=== PATIENT | male | born 1940 | race Caucasian/White ===

== ENCOUNTER 2023-02-20 11:59 | Emergency (ER) | payer OTHER ==
--- OUTSIDE RECORDS SUMMARY | 2023-02-20 12:02 | XMS REPORT | Continuity of Care Document ---
:1940 Author Organization [facility] Address [address] [place] [address] [place] [id number] Care Team Providers Name Role Phone Gema GUILLEN, Moiz Attending Clinician Payers Payer Name Policy Type Policy Number Effective Date Expiration Date S ource Problems This patient has no known problems. Allergies, Adverse Reactions, Alerts This patient has no known allergies or adverse reactions. Social History Social Habit Start Date Stop Date Quantity Comments Source Sex Assigned At [facility] llege of Medicine Exposure to Not sure [facility] SARS-CoV-2 of Medicine (event) Alcohol intake 2020-02-17 2020-02-17 Current [facility] Col lege 00:00:00 00:00:00 non-drinker of of Medicin e alcohol (finding) Smoking Status Start Date Stop Date Source Never smoker [facility] o f Medicine Medications Ordered Filled Start Stop Current Ordering Indication Dosage Frequency Signature Comments Components Source Medication Medication Date Date Medication? Clinician (SIG) Name Name clindamycin Yes [id number] Apply to [facility] (CLEOCIN T) 02-16 affected [facility] 1 % lotion 00:00: area on of 00 left cheek Medicin twice a e day for 1 week fluorouraci 2019-0 Yes Apply [facility] l (EFUDEX) 6 topically [facility] 5 % cream 00:00: to of 00 affected Medicin area on e scalp and ears twice a day for up to 4 weeks fluorouraci 2018-09 2020- No Apply [facility] l (EFUDEX) 2-12 19- topically Col lege 5 % cream 00:00: 00:00 to scalp of 00 :00 twice a Medicin day for 4 e weeks Immunizations Ordered Immunization Filled Immunization Date Status Commedmundo ts Source Name Name Influenza Hd 2019-05-09 Completed [facility] Colle ge 00:00:00 of Medicine Vital Signs Vital Name Observation Time Observation Value Comments Source Systolic blood 2020-02-17 17:59:00 147 mm[Hg] [facility] pressure [facility] Diastolic blood 2020-02-17 17:59:00 72 mm[Hg] [facility] pressure [facility] Heart rate 2020-02-17 17:59:00 79 /min [facility] ollege [facility] Body height 2020-02-17 17:59:00 180.3 cm [facility] 2020-02-17 17:59:00 84.369 kg [facility] BMI 2020-02-17 17:59:00 25.94 kg/m2 [facility] Procedures This patient has no known procedures. Plan of Care Planned Activity Planned Date Details Comments Source Future Scheduled MA DESTRUC Ordered: [facility] ege of Test PREMALIGNANT, FIRST 02/17/2020 Medicine LESION(55801) [code = 39452] Future Scheduled TETANUS SHOT [facility] ege of Test (ADULT) [code = Medicine TETANUS SHOT (ADULT)] Future Scheduled BMI FOLLOW UP PLAN [facility] Test [code = BMI FOLLOW Medicine UP PLAN] Future Scheduled MEDICARE AWV [facility] e[facility] of Test (Initial) [code = Medicine MEDICARE AWV (Initial)] Future Scheduled FALL SCREEN [code = [facility] Test FALL SCREEN] Medicine Future Scheduled PNEUMOVAX >=65 [facility] Co llege of Test (PPSV23) [code = Medicine PNEUMOVAX >=65 (PPSV23)] Future Scheduled PREVNAR >= 65 [facility] Col lege of Test (PCV13) [code = Medicine PREVNAR >= 65 (PCV13)] Future Scheduled FLU VACCINE > 6 [facility] ollege of Test MONTHS [code = FLU Medicine VACCINE > 6 MONTHS] Encounters Start End Encounter Admission Attending Care Care Encounter Source Date/Time Date/Time Type Type Clinicians Facility Department ID 2020-02-17 2020-02-17 Office RADHA Ribeiro [id number] [facility] 12:53:26 13:08:26 Visit Moiz AMBULATOR [id number] College [employer] [id number] of [id number] Medi rebecca 300 e Results This patient has no known results.
--- NOTE | 2023-02-20 12:54 | RAD REPORT ---
EXAM DESCRIPTION: US - Extremity Venous Uni Ltd - 02/20/2023 12:48 pm CLINICAL HISTORY: pain, swelling Leg swelling and edema. COMPARISON: No comparisons FINDINGS: Left lower extremity venous system was interrogated with Doppler technique. Normal flow, c ompressibility and augmentation was noted. There is no DVT present. IMPRESSION: No evidence of left lower extremity deep venous thrombosis.
[2023-02-20 14:03] LABS: Hematocrit 39.5 % (39.6-49.0); Lymphocytes % 24.4 % (15.3-44.8); MCV 93.7 fL (80-100); MPV 7.6 fL (7.6-11.3); RBC Red Blood Cell Count 4.21 M/uL (4.33-5.43)
[2023-02-20 14:17] LABS: Albumin 3.7 g/dL (3.4-5.0); Bilirubin Total 0.7 mg/dL (0.2-1.0); Potassium 4.5 mEq/L (3.5-5.1); Protein, Total 7.3 g/dL (6.4-8.2)
--- NOTE | 2023-02-20 14:27 | EDPHYS ---
Physician Documentation [facility] Name: Michael Keating Age: 82 yrs Sex: Male : 1940 Arrival Date: 02/20/2023 Time: 11:59 Bed IW1 Private MD: ED Physician Lam Westbrook HPI: 02/20 13:07 This 82 yrs old Male presents to ER via Ambulatory with complaints of Leg bs3 Swelling. 13:07 82-year-old male presents with lower leg swelling he notes that he was working on a bs3 ladder this weekend and then developed swelling he was not more exertion than he normally does he notes pain in his calf he denies any fevers or chills chest pain shortness of breath or changes in his urine this is never happened before he regularly exercises like this. Historical: - Allergies: 12:15 No Known Allergies; ll1 - PMHx: 12:15 None; ll1 - PSHx: 12:15 Appendectomy; ll1 - Immunization history:: Adult Immunizations up to date, Client reports receiving the 1st dose of the Covid vaccine. - Social history:: Smoking status: Patient denies any tobacco usage or history of. ROS: 13:07 Constitutional: Negative for fever, chills bs3 13:07 All other systems are negative. Exam: 13:07 Constitutional: This is a well developed, well nourished patient who is awake, alert, bs3 and in no acute distress. Head/Face: Normocephalic, atraumatic. Eyes: Pupils equal round and reactive to light, extra-ocular motions intact. Lids and lashes normal. ENT: mmm, no posterior phyarngeal erythema Neck: Trachea midline, no thyromegaly, no neck stiffness Chest/axilla: Normal chest wall appearance and motion. Nontender with no deformity. No lesions are appreciated. Cardiovascular: Regular rate and rhythm with a normal S1 and S2. symmetric pulses in upper extremities Respiratory: Lungs have equal breath sounds bilaterally, clear to auscultation, no respiratory distress Skin: Warm, dry with normal turgor. Normal color with no rashes, no lesions, and no evidence of cellulitis. MS/ Extremity: Lower extremity in the left is swollen he has 1+ pitting edema on the left lower extremity it is not red or warm it is unchanged in color Neuro: Awake and alert, GCS 15, oriented to person, place, time, and situation. Cranial nerves II-XII grossly intact. Motor strength 5/5 in all extremities. Sensory grossly intact. Vital Signs: 12:15 BP 176 / 82; Pulse 80; Resp 18; Temp 97.9; Pulse Ox 97% ; Weight 85.28 kg; Height 5 ft. ll1 11 in. ; Pain 2/10; 14:30 BP 162 / 57; Pulse 64; Resp 16; ll1 12:15 Body Mass Index 26.22 (85.28 kg, 180.34 cm) ll1 12:15 Pain Scale: Adult ll1 MDM: 12:18 Patient medically screened. bs3 13:07 Data reviewed: vital signs, nurses notes. ED course: Patient with lower leg swelling bs3 will rule out DVT we will check labs as he has not seen a doctor in several years His ultrasound was negative for deep vein thrombosis advise repeat in 1 week he was seen in the middle of possible MCI and therefore discharged early he is advised to follow-up with primary care. 14:26 ED course: I discussed the case with the patient I have unclear etiology of his bs3 swelling I advised him to follow-up with the primary care doctor in 1 week for repeat ultrasound given that the distal swelling if this is a distal DVT I have asked him to follow-up with primary care for further work-up. 14:35 ED course: on further hx pt reports feeling a twinge on one particular step, likely bs3 gastrocnemius tear. . 02/20 12:23 Order name: CBC with Diff; Complete Time: 14:28 bs3 02/20 12:23 Order name: Comprehensive Metabolic Panel; Complete Time: 14:28 bs3 02/20 12:23 Order name: CK; Complete Time: 14:28 bs3 02/20 12:23 Order name: US Extremity Venous Unilateral Ltd; Complete Time: 13:01 bs3 Administered Medications: No medications were administered Disposition Summary: 02/20/23 14:27 Discharge Ordered Location: Home bs3 Problem: new bs3 Symptoms: have improved bs3 Condition: Stable bs3 Diagnosis - Pain in left lower leg bs3 Followup: bs3 - With: Private Physician - When: 1 week - Reason: Re-evaluation by your physician Discharge Instructions: - Discharge Summary Sheet bs3 - Musculoskeletal Pain bs3 - Edema, [id number]-lc-[id number] bs3 - Peripheral Edema bs3 Forms: - Medication Reconciliation Form bs3 - Thank You Letter bs3 - Antibiotic Education bs3 - Prescription Opioid Use bs3 Signatures: Dispatcher [employer] Ramesh Truong RN RN ll1 Lam Westbrook MD MD bs3 Corrections: (The following items were deleted from the chart) 12:15 12:15 PSHx: None; [facility]
--- NOTE | 2023-02-20 14:27 | ER ---
Nurse's Notes [facility] Name: Michael Keating Age: 82 yrs Sex: Male : 1940 Arrival Date: 02/20/2023 Time: 11:59 Bed IW1 Private MD: Diagnosis: Pain in left lower leg Presentation: 02/20 12:15 Chief complaint: Patient states: LLE swelling since Friday. Hurts more in the calf ll1 area and knee. Coronavirus screen: Vaccine status: Patient reports receiving the 1st dose of the Covid vaccine. Client denies travel out of the [place] in the last 14 days. At this time, the client does not indicate any symptoms associated with coronavirus-19. Ebola Screen: Patient denies travel to an Ebola-affected area in the 21 days before illness onset. Initial Sepsis Screen: Does the patient meet any 2 criteria? No. Patient's initial sepsis screen is negative. Does the patient have a suspected source of infection? No. Patient's initial sepsis screen is negative. Risk Assessment: Do you want to hurt yourself or someone else? Patient reports no desire to harm self or others. Onset of symptoms was February 15, 2023. 12:15 Method Of Arrival: Ambulatory ll1 12:15 Acuity: JANET 3 ll1 Triage Assessment: 12:20 General: Appears uncomfortable, Behavior is calm, cooperative, appropriate for age. ll1 Pain: Complains of pain in left leg Quality of pain is described as aching. Musculoskeletal: Circulation, motion, and sensation intact. Capillary refill < 3 seconds, Swelling present in left leg. Historical: - Allergies: 12:15 No Known Allergies; ll1 - PMHx: 12:15 None; ll1 - PSHx: 12:15 Appendectomy; ll1 - Immunization history:: Adult Immunizations up to date, Client reports receiving the 1st dose of the Covid vaccine. - Social history:: Smoking status: Patient denies any tobacco usage or history of. Screenin:31 [facility] ED Fall Risk Assessment (Adult) Score/Fall Risk Level 0 - 2 = Low Risk ll1 Oriented to surroundings, Maintained a safe environment, Educated pt \T\ family on fall prevention, incl call for assistance when getting out of bed, Hourly rounding (assess needs \T\ fall precautionary measures) done. Abuse screen: Denies threats or abuse. Nutritional screening: No deficits noted. Tuberculosis screening: No symptoms or risk factors identified. Assessment: 14:30 Reassessment: No changes from previously documented assessment. Patient and/or family ll1 updated on plan of care and expected duration. Pain level reassessed. Patient is alert, oriented x 3, equal unlabored respirations, skin warm/dry/pink. Vital Signs: 12:15 BP 176 / 82; Pulse 80; Resp 18; Temp 97.9; Pulse Ox 97% ; Weight 85.28 kg; Height 5 ft. ll1 11 in. ; Pain 2/10; 14:30 BP 162 / 57; Pulse 64; Resp 16; ll1 12:15 Body Mass Index 26.22 (85.28 kg, 180.34 cm) ll1 12:15 Pain Scale: Adult ll1 ED Course: 12:02 Patient arrived in ED. mr 12:14 Arm band placed on. ll1 12:17 Triage completed. ll1 12:18 Lam Westbrook MD is Attending Physician. bs3 12:50 Extremity Venous Unilateral Ltd In Process Unspecified. EDMS 14:25 IV is patent, is intact, 22 G R AC. ll1 14:30 IV discontinued, intact, bleeding controlled, No redness/swelling at site. Pressure ll1 dressing applied. 14:31 Patient has correct armband on for positive identification. Placed in gown. Bed in low ll1 position. Call light in reach. Cardiac monitoring not applicable on this patient. 14:31 No provider procedures requiring assistance completed. ll1 Administered Medications: No medications were administered Medication: 14:31 VIS not applicable for this client. ll1 Outcome: 14:27 Discharge ordered by . bs3 14:31 Discharged to home ambulatory. ll1 14:31 Condition: stable 14:31 Discharge instructions given to patient, Instructed on discharge instructions, follow up and referral plans. Demonstrated understanding of instructions, follow-up care. 14:32 Patient left the ED. ll1 Signatures: Dispatcher [employer] [facility] Leilani Yates Lynsay, RN RN ll1 Lam Westbrook MD MD bs3 Corrections: (The following items were deleted from the chart) 12:15 12:15 PSHx: None; ll1 ll1
[2023-02-20 15:23] VITALS: TEMP 97.9; O2SAT 97
[2023-02-20 15:24] VITALS: BP 162/57
== END 2023-02-20 14:32 | disposition home or self-care (01) ==
LOC: ER 11:59
DX: M79.662 Pain in left lower leg (principal)
CPT/HCPCS: 36415; 80053; 82550; 85025; 93971; 99283